=== PATIENT | female | born 1995 | race American Indian/Alaskan Native ===

== ENCOUNTER 2021-09-14 04:55 | Emergency (ER) | payer MEDICAID ==
[2021-09-14 07:20] LABS: Mucus,Urine 2+ /HPF
[2021-09-14 07:23] LABS: Color,Urine Straw (Yellow)
[2021-09-14 07:25] LABS: Bilirubin,Urine Negative (Negative); Blood,Urine Negative (Negative)
[2021-09-14 07:26] LABS: Protein,Urine <30 mg dL mg/dL (Negative); Urobilinogen,Urine < 2.0 mg/dL (<2.0)
[2021-09-14 07:27] LABS: Hematocrit 29.9 % (30.3-42.9); Hemoglobin 10.3 gm/dl (10.1-14.3); Mean Corpuscular HGB Conc 34 % (30-34); Mean Corpuscular Volume 87 fl (79-97); Platelet Count 207 K/mm3 (140-440); Red Blood Count 3.46 M/mm3 (3.65-5.03)
--- NOTE | 2021-09-14 07:28 | Ultrasound Report ---
ULTRASOUND ABDOMEN, LIMITED INDICATION / CLINICAL INFORMATION: ruq discomfrt. COMPARISON: None available. TECHNIQUE: Using transcutaneous protocol multiple grayscale and color Doppler images were captured an d stored of the pancreas, liver, aorta, inferior vena cava, gallbladder, common bile duct, and right kidney. FINDINGS: PANCREAS: Visualized portion shows no significant abnormality. AORTA: Longitudinal images of the aorta demonstrate no significant abnormality. IVC: Longitudinal images of the inferior vena cava demonstrate no significant abnormality. LIVER: Liver demonstrates a heterogeneous appearance of focal mass. Right hepatic lobe measures 14.7 cm. Normal hepatopedal blood flow in the main portal vein. GALLBLADDER: No significant abnormality. BILE DUCTS: No significant abnormality. Common bile duct measures 1.9 mm. RIGHT KIDNEY: Solid mass mid to upper right renal cortex measures 2.9 x 3.1 x 3.2 cm. FREE FLUID: None. ADDITIONAL FINDINGS: None. IMPRESSION: 1. Solid right renal mass as detailed. Most commonly this represents renal cell carcinoma. Signer Name: Vaughn Alba II, MD Signed: 09/14/2021 7:24 AM Workstation Name: [id number]
[2021-09-14 07:52] LABS: Alanine Aminotransferase 9 units/L (7-56); Blood Urea Nitrogen 4 mg/dL (7-17); Calcium 8.9 mg/dL (8.4-10.2); Hemolysis Index 2
--- NOTE | 2021-09-14 08:02 | Emergency Department Report ---
"ED General Adult HPI - General Chief complaint: Abdominal Pain Stated complaint: 15WKS PREG/ABD PAIN/CHEST PAIN/KAREEM Time Seen by Provider: 09/14/21 06:33 Source: patient Mode of arrival: Ambulatory Limitations: No Limitations - History of Present Illness Initial comments: This is a 25-year-old female who denies medical history came in today with concerns of right upper quadrant discomfort that started around 9 PM last night. Patient denies any other symptoms. Patient denies any other symptoms denies fever chill night sweat dizziness blurred vision lightheadedness headache tinnitus ear pain runny nose sore throat loss of taste or smell chest pain palpitation short of breath cough nausea vomiting diarrhea constipation dysuria myalgia arthralgia new rash and heat or cold intolerance Severity scale (0 -10): 4 - Related Data Allergies Allergy/AdvReac Type Severity Reaction Status Date / Time No Known Allergies Allergy Unverified 09/14/21 05:08 ED Review of Systems ROS: Stated complaint: 15WKS PREG/ABD PAIN/CHEST PAIN/KAREEM Other details as noted in HPI Comment: All other systems reviewed and negative Constitutional: no symptoms reported, see HPI Eyes: as per HPI ENT: as per HPI Respiratory: no symptoms reported, see HPI Cardiovascular: as per HPI Endocrine: no symptoms reported, see HPI Gastrointestinal: abdominal pain. denies: nausea, vomiting, diarrhea, constipation, hematemesis, melena, hematochezia Musculoskeletal: as per HPI Skin: as per HPI Neurological: as per HPI Psychiatric: as per HPI Hematological/Lymphatic: as per HPI ED Past Medical Hx - Past Medical History Previous Medical History?: No ED Physical Exam - General Limitations: No Limitations General appearance: alert, in no apparent distress - Head Head exam: Present: atraumatic, normocephalic, normal inspection - Eye Eye exam: Present: normal appearance, PERRL, EOMI Pupils: Present: normal accommodation - ENT ENT exam: Present: normal exam, mucous membranes moist - Neck Neck exam: Present: normal inspection, full ROM - Respiratory Respiratory exam: Present: normal lung sounds bilaterally - Cardiovascular Cardiovascular Exam: Present: regular rate, normal rhythm, normal heart sounds - GI/Abdominal GI/Abdominal exam: Present: soft - Extremities Exam Extremities exam: Present: normal inspection, full ROM, normal capillary refill - Back Exam Back exam: Present: normal inspection, full ROM - Neurological Exam Neurological exam: Present: alert, oriented X3, CN II-XII intact - Psychiatric Psychiatric exam: Present: normal affect, normal mood - Skin Skin exam: Present: normal color ED Course Vital Signs 09/14/21 09/14/21 05:06 06:34 Temperature 98.4 F 97.0 F L Pulse Rate 104 H 89 Respiratory 20 17 Rate Blood Pressure 108/71 105/61 [Right] O2 Sat by Pulse 98 99 Oximetry - Consultations Consultation #1: 09/14/21 11:[address] MORRIS WHO GAVE ME SUGGESTION AND ADVICE ON WHERE TO START NEXT. SHOULD LOOK INTO ENDOUROLOGIST OR [facility]. I have spoken to racing secretary at [facility] at [phone] who took patient's phone number and stated that she will run the case by the assistant fitness manager and also Dr. Ruiz. According to the racing secretary they will give the patient call back at patient's phone number which is [phone] ED Medical Decision Making - Lab Data Result diagrams: 09/14/21 06:52 09/14/21 06:52 Critical care attestation.: If time is entered above; I have spent that time in minutes in the direct care of this critically ill patient, excluding procedure time. ED Disposition Clinical Impression: Right kidney mass, UTI (urinary tract infection) Disposition: 01 HOME / SELF CARE / HOMELESS Is pt being admited?: No Does the pt Need Aspirin: No Condition: Stable Instructions: Abdominal Pain (ED) Additional Instructions: Please call the following places and make an appointment immediately for further evaluation and management of your right renal mass. [facility] [phone] [facility] [address] [place] [address] | Referrals: PRIMARY CAREMD [Primary Care Provider] - 3-5 Days Time of Disposition: 11:56"
[2021-09-14] MEDS ORDERED: ACETAMINOPHEN 325 MG TAB PO ONE (08:03)
[2021-09-14 08:04] LABS: BUN/Creatinine Ratio 8
[2021-09-14 13:24] VITALS: BP 108/66
== END 2021-09-14 12:23 | disposition home or self-care (01) ==
LOC: ED 04:55
DX: O23.02 Infections of kidney in pregnancy, second trimester (principal); N15.8 Other specified renal tubulo-interstitial diseases; N39.0 Urinary tract infection, site not specified; Z3A.15 15 weeks gestation of pregnancy
CPT/HCPCS: 36415; 76705; 80053; 81001; 83735; 85027; 87086; 99284